=== PATIENT | female | born 1965 | race Two or more races ===

== ENCOUNTER 2018-08-11 10:07 | Inpatient (IN) | payer SELFPAY ==
[~2018-08-11] VITALS: Ht 154.9 cm; Wt 107.4 kg
[2018-08-11] MEDS ORDERED: SODIUM CHLORIDE 0.9% 1,000 ML IV ONE (10:15)
[2018-08-11] MEDS ORDERED: HEPARIN SODIUM (PORCINE) 5000 UNITS/ML 1ML VIAL ONE (10:26)
[2018-08-11] MEDS ORDERED: HEPARIN IN NS 1000U/500ML (2UNIT/ML) 500 ML BAG/KIT IV ONE (10:30)
[2018-08-11] MEDS ORDERED: ONDANSETRON HCL 4 MG/2 ML VIAL ONE (10:32)
[2018-08-11] MEDS ORDERED: MORPHINE SULFATE 4 MG/ML SYR/VIAL ONE (10:32)
[2018-08-11] MEDS ORDERED: IODIXANOL 320MG/ML 100ML BTL IV ONE (10:41)
[2018-08-11] MEDS ORDERED: LIDOCAINE 2%HCL (LOCAL ANESTH.) INJ 20ML MDV ONE (10:41)
[2018-08-11] MEDS ORDERED: MORPHINE SULFATE 4 MG/ML SYR/VIAL IV ONE (10:45)
[2018-08-11] MEDS ORDERED: ONDANSETRON HCL 4 MG/2 ML VIAL IV ONE (10:45)
[2018-08-11] MEDS ORDERED: ANGIOMAX 250 MG VIAL IV ONE (10:50)
[2018-08-11] MEDS ORDERED: MIDAZOLAM HCL 1MG/1ML-2 ML VIAL ONE (10:50)
[2018-08-11] MEDS ORDERED: fentaNYL CITRATE 100 MCG/2 ML VL ONE (10:50)
[2018-08-11] MEDS ORDERED: ATROPINE SULFATE 1 MG/1 ML VIAL ONE (10:50)
[2018-08-11] MEDS ORDERED: VERAPAMIL 2.5MG/ML INJ 2ML VIAL IV ONE (10:51)
[2018-08-11] MEDS ORDERED: EPINEPHrine HCL 1 MG/10 ML SYRG ONE (10:51)
[2018-08-11] MEDS ORDERED: DOPamine 1600MCG/ML D5W 0 ML IV ONE (10:51)
[2018-08-11] MEDS ORDERED: SODIUM CHL 0.9% 50 ML ONE (10:51)
[2018-08-11] MEDS ORDERED: HEPARIN SODIUM (PORCINE) 5000 UNITS/ML 1ML VIAL IV ONE (11:00)
[2018-08-11 11:05] LABS: Basophils # (auto) 0.1 uL; Eosinophils # (auto) 0.3 uL; Hemoglobin 12.8 g/dL (12.2-16.2); Nucleated Red Blood Cells % 0.1 %
[2018-08-11 11:09] LABS: Basophils % (auto) 0.7 % (0.0-2.0); Eosinophils % (auto) 1.9 % (0.0-7.0); Hematocrit 40.4 % (36.0-46.0); Lymphocytes # (auto) 6.1 uL; Lymphocytes % (auto) 37.1 % (10.0-50.0); Mean Corpuscular Hemoglobin 26.5 pg (28.0-32.0); Mean Corpuscular Hgb Conc. 31.6 g/dL (32.0-36.0); Mean Corpuscular Volume 83.8 fL (80.0-100.0); Monocytes # (auto) 1.1 uL; Neutrophils # (auto) 8.7 uL; Neutrophils % (auto) 53.3 % (37.0-80.0); Platelet Count (auto) 373 10^3/uL (140-450); Red Blood Cells 4.82 10^6/uL (4.0-5.20); Red Cell Distribution Width 15.6 % (11.8-14.3); White Blood Cell 16.4 10^3/uL (4.4-10.8)
[2018-08-11 11:22] LABS: Potassium 4.1 mmol/L (3.5-5.1)
[2018-08-11] MEDS ORDERED: TICAGRELOR 90 MG TAB ONE (11:25)
[2018-08-11 11:28] LABS: Albumin 3.2 g/dL (3.4-5.0); BUN/Creatinine Ratio 15.1; Bilirubin, Total 0.2 mg/dL (0.2-1.0); Calcium 8.2 mg/dL (8.5-10.1); Magnesium 2.4 mg/dL (1.6-2.6); Total Protein 7.9 g/dL (6.4-8.2)
[2018-08-11] MEDS: SODIUM CHLORIDE 0.9% 1,000 ML IV SCH ×2 (12:00→22:00)
[2018-08-11] MEDS ORDERED: NITROGLYCERIN 0.4 MG SL TAB SL PRN ×2 (12:00→12:15)
[2018-08-11] MEDS ORDERED: MORPHINE SULF INJ 2 MG/ML SYRINGE 1ML IV PRN ×2 (12:00→12:15)
[2018-08-11] MEDS ORDERED: SODIUM CHLORIDE 0.9% 1,000 ML IV SCH (12:06)
[2018-08-11] MEDS ORDERED: ONDANSETRON HCL 4 MG/2 ML VIAL IV PRN (12:15)
[2018-08-11] MEDS ORDERED: HYDROcodone-ACET 5/325MG TAB PO PRN (15:00)
[2018-08-11] MEDS ORDERED: LORazepam 0.5 MG TAB PO PRN (15:00)
[2018-08-11] MEDS ORDERED: ACETAMINOPHEN 500 MG TAB PO PRN (15:00)
[2018-08-11] MEDS ORDERED: ZOLPIDEM TARTRATE 5 MG TAB PO PRN (15:00)
[2018-08-11 16:00] VITALS: BP 139/86
[2018-08-11] MEDS ORDERED: DEXTROSE (50%) 50ML SYRG IV PRN (16:00)
--- NOTE | 2018-08-11 16:00 | NUR ---
Admit to [facility] admitted to [facility] via gurney on tafe registrar, and portable 02 from cathead worker s/p STEMI. Patient transferred to bed, connected to unit monitoring, and weighed by bed scale. Patient oriented to Livier Johnson, primary RN, unit, room, bed, and unit policies regarding patient care and visiting hours. All questions and concerns addressed, patient verbalized understanding.
[2018-08-11 16:58] LABS: INR 1.02 (0.9-1.15); Prothrombin Time 10.9 sec (9.27-12.13)
[2018-08-11] MEDS: InsuLIN REG 1unit/0.01ml Soln (100units/ml) SC SCH ×2 (17:00→21:56)
[2018-08-11] MEDS: ACCU-CHEK COMFORT CURVE STRIP VI SCH ×2 (17:00→21:55)
[2018-08-11 20:00] VITALS: BP 158/76
--- NOTE | 2018-08-11 20:35 | NUR ---
Telemetry transfer from [facility] transferred to Telemetry unit with all belongings after SBAR received from Lisa KAUR. Patient oriented to TOMAS LINCOLN RN primary RN, unit, room, bed, and unit policies regarding patient care and visiting hours. Patient now on continuous telemetry monitoring, tele box # 2 and telemetry reading on arrival to unit is sinus tachycardia at 101 beats per minute. Patient weighed by bedscale and encouraged to call if they need something. All questions and concerns addressed, patient verbalized understanding. Bed in lowest locked position, side rails up x2, call light within reach.
--- NOTE | 2018-08-11 20:37 | NUR ---
PATIENT IN STABLE CONDITION,NO SIGNIFICANT DISCOMFORT, RSR, BP STABLE, SATS 100% ON RA. STATUS CHANGED TO TELEMETRY. BED NOW AVAILABLE IN RM 250B. PT INFORMED OF TRANSFER, REPORT ON PT'S CONDITION GIVEN TO VINCENT MARIN.
[2018-08-11 20:45] VITALS: BP 151/62
[2018-08-11] MEDS: ATORVASTATIN 20 MG TAB PO SCH (21:15)
[2018-08-11] MEDS: CARVEDILOL 3.125 MG TAB PO SCH (21:16)
[2018-08-11] MEDS ORDERED: CLOPIDOGREL 300 MG TAB PO ONE (22:00)
[2018-08-12 05:00] VITALS: BP 98/49
[2018-08-12] MEDS: InsuLIN REG 1unit/0.01ml Soln (100units/ml) SC SCH ×4 (07:00→22:26)
[2018-08-12] MEDS: ACCU-CHEK COMFORT CURVE STRIP VI SCH ×4 (07:00→22:26)
[2018-08-12 07:37] VITALS: BP 121/67
[2018-08-12] MEDS: SODIUM CHLORIDE 0.9% 1,000 ML IV SCH ×2 (08:41→12:15)
[2018-08-12] MEDS: LOSARTAN POTASSIUM 25 MG TAB PO SCH (09:59)
[2018-08-12] MEDS: ASPirin 81 mg TAB PO SCH (09:59)
[2018-08-12] MEDS: CARVEDILOL 3.125 MG TAB PO SCH ×2 (10:00→22:26)
[2018-08-12] MEDS: CLOPIDOGREL BISULFATE 75 MG TAB PO SCH (10:00)
--- NOTE | 2018-08-12 10:57 | NUR ---
GAVE PATIENT DIABETIC INFORMATION BEFORE DISCHARGE SO THAT IF PATIENT NEEDS TO ASK QUESTIONS, SHE CAN ASK ME.
[2018-08-12] MEDS ORDERED: glipiZIDE 5 MG TAB PO ONE (11:45)
[2018-08-12] MEDS ORDERED: traMADol HCL 50 MG TAB PO PRN (12:00)
[2018-08-12 12:06] VITALS: BP 125/65
[2018-08-12 16:40] VITALS: BP 106/46
--- NOTE | 2018-08-12 19:30 | NUR ---
open note assumed care of pt. pt awake and alert upon entering room. denies any pain. no distress noted. pt updated on plan of care and had no additional questions at this time. call light in reach, encouraged pt to call as needed. will round q1hr and prn.
[2018-08-12 22:00] VITALS: BP 131/75
[2018-08-12] MEDS: ATORVASTATIN 20 MG TAB PO SCH (22:25)
[2018-08-13] MEDS: SODIUM CHLORIDE 0.9% 1,000 ML IV SCH (01:34)
[2018-08-13 05:00] VITALS: BP 93/42
[2018-08-13] MEDS: ACCU-CHEK COMFORT CURVE STRIP VI SCH ×2 (06:52→11:53)
[2018-08-13] MEDS: InsuLIN REG 1unit/0.01ml Soln (100units/ml) SC SCH ×2 (06:53→11:53)
[2018-08-13] MEDS ORDERED: glipiZIDE 5 MG TAB PO SCH (07:00)
--- NOTE | 2018-08-13 07:00 | NUR ---
Opening Shift Note Assumed care of patient, awake and alert. No S/S of distress/SOB or pain. Instructed on POC and to call for assist PRN, will continue to monitor for changes Q1hr and PRN.
[2018-08-13 07:43] LABS: Basophils # (auto) 0.1 uL; Basophils % (auto) 0.5 % (0.0-2.0); Eosinophils # (auto) 0.3 uL; Eosinophils % (auto) 2.8 % (0.0-7.0); Hematocrit 35.9 % (36.0-46.0); Hemoglobin 11.7 g/dL (12.2-16.2); Lymphocytes # (auto) 3.4 uL; Mean Corpuscular Hemoglobin 27.3 pg (28.0-32.0); Mean Corpuscular Hgb Conc. 32.5 g/dL (32.0-36.0); Mean Corpuscular Volume 83.9 fL (80.0-100.0); Monocytes # (auto) 0.7 uL; Monocytes % (auto) 6.6 % (0.0-12.0); Neutrophils # (auto) 6.4 uL; Neutrophils % (auto) 59.1 % (37.0-80.0); Platelet Count (auto) 317 10^3/uL (140-450); Red Blood Cells 4.28 10^6/uL (4.0-5.20); Red Cell Distribution Width 15.4 % (11.8-14.3); White Blood Cell 10.9 10^3/uL (4.4-10.8)
[2018-08-13 07:51] LABS: BUN/Creatinine Ratio 12.2; Calcium 7.9 mg/dL (8.5-10.1)
[2018-08-13 09:20] VITALS: BP 127/78
[2018-08-13] MEDS: ASPirin 81 mg TAB PO SCH (10:37)
[2018-08-13] MEDS: CARVEDILOL 3.125 MG TAB PO SCH (10:38)
[2018-08-13] MEDS: LOSARTAN POTASSIUM 25 MG TAB PO SCH (10:39)
[2018-08-13] MEDS: CLOPIDOGREL BISULFATE 75 MG TAB PO SCH (10:39)
[2018-08-13 12:29] VITALS: BP 127/78
[2018-08-13 13:00] VITALS: BP 110/67
--- NOTE | 2018-08-13 13:48 | NUR ---
Discharge instructions given as ordered. Encourage to follow up with PMD as instructed. All questions and concerns addressed. Patient verbalized understanding. Medication reconciliation form completed and copy given to patient. . IV removed with catheter intact, pressure dressing applied. Telemetry unit returned to ICU. Patient taken to vehicle via wheelchair with all personal belongings, accompanied by staff and family member. No distress noted at time of departure.
== END 2018-08-13 13:48 | disposition home or self-care (01) | DRG 247 ==
LOC: ER 10:16 → CATH 10:49 → ICU CENTRL 16:19 → DOU IN ICU 16:28 → TELE-EAST 20:30
PROVIDERS: ADMIT Internal Medicine; ATTEND Internal Medicine
PROC: 027035Z Dilation of Coronary Artery, One Artery with Two Drug-eluting Intraluminal Devices, Percutaneous Approach (ICD-10-PCS; principal; 2018-08-11)
PROC: 4A023N7 Measurement of Cardiac Sampling and Pressure, Left Heart, Percutaneous Approach (ICD-10-PCS; 2018-08-11)
PROC: B2111ZZ Fluoroscopy of Multiple Coronary Arteries using Low Osmolar Contrast (ICD-10-PCS; 2018-08-11)
DX: I21.3 ST elevation (STEMI) myocardial infarction of unspecified site (principal); Z68.41 Body mass index [BMI] 40.0-44.9, adult; I10 Essential (primary) hypertension; E78.5 Hyperlipidemia, unspecified; E66.01 Morbid (severe) obesity due to excess calories; I25.10 Atherosclerotic heart disease of native coronary artery without angina pectoris; E11.9 Type 2 diabetes mellitus without complications; I25.2 Old myocardial infarction; Z79.02 Long term (current) use of antithrombotics/antiplatelets; Z79.82 Long term (current) use of aspirin; Z79.84 Long term (current) use of oral hypoglycemic drugs; Z79.899 Other long term (current) drug therapy; Z91.14 Patient's other noncompliance with medication regimen
CPT/HCPCS: 36415; 71045; 80048; 80053; 82962; 83036; 83735; 83880; 84443; 84484; 85025; 85610; 87081; 93005; 93306; 94761; 96374; 96375; A6257; G0378; J0461; J1815; J2250; J2405; Q9967

== ENCOUNTER → 2019-01-03 | Outpatient (CLI) | payer MEDICAID | END | disposition home or self-care (01) | LOC: XYW 07:32 | PROVIDERS: ATTEND Internal Medicine | DX: I25.10 Atherosclerotic heart disease of native coronary artery without angina pectoris (principal); E11.9 Type 2 diabetes mellitus without complications | CPT/HCPCS: 93306 ==

== ENCOUNTER → 2019-03-26 | Outpatient (CLI) | payer MEDICAID ==
[~2019-03-26] VITALS: Ht 154.9 cm; Wt 90.7 kg
[~2019-03-26] MED LIST: ADENOSINE 76 MG in GIVE UN-DILUTED 0 ML IV STA
== END | disposition home or self-care (01) ==
LOC: XY 07:47
PROVIDERS: ATTEND Internal Medicine
DX: R07.9 Chest pain, unspecified (principal)
CPT/HCPCS: 78452; 93017; A9500; J0153

== ENCOUNTER 2020-02-04 10:06 | Day surgery (SDC) | payer MEDICAID ==
[~2020-02-04] VITALS: Ht 154.9 cm; Wt 90.7 kg
[~2020-02-04 10:06] MED LIST changes: -ADENOSINE 76 MG in GIVE UN-DILUTED 0 ML IV STA; +ASPI-543 PO; +ATOR40TA52 PO; +CARV12.544 PO; +CLOP75TA28 PO; +EMPA1TAB PO; +GABA100C9 PO; +LOSA-69 PO; +METF-370 PO; +PANT40TA2 PO
[2020-02-04] MEDS ORDERED: ANGIOMAX 250 MG VIAL IV ONE (10:38)
[2020-02-04] MEDS ORDERED: MIDAZOLAM HCL 1MG/1ML-2 ML VIAL ONE (10:39)
[2020-02-04] MEDS ORDERED: IOHEXOL 350 MG/ML 100ML IJ ONE (10:39)
[2020-02-04] MEDS ORDERED: HEPARIN SODIUM (PORCINE) 5000 UNITS/ML 1ML VIAL ONE (10:39)
[2020-02-04] MEDS ORDERED: LIDOCAINE 2%HCL (LOCAL ANESTH.) INJ 20ML MDV ONE (10:39)
[2020-02-04] MEDS ORDERED: fentaNYL CITRATE 100 MCG/2 ML VL ONE (10:39)
[2020-02-04] MEDS ORDERED: VERAPAMIL 2.5MG/ML INJ 2ML VIAL IV ONE (10:39)
[2020-02-04] MEDS ORDERED: SODIUM CHL 0.9% 50 ML ONE (10:39)
[2020-02-04] MEDS ORDERED: HYDROcodone-ACET 5/325MG TAB PO PRN (11:45)
[2020-02-04] MEDS ORDERED: ACETAMINOPHEN 500 MG TAB PO PRN (11:45)
[2020-02-04] MEDS ORDERED: ONDANSETRON HCL 4 MG/2 ML VIAL IV PRN (11:45)
== END 2020-02-04 15:53 | disposition home or self-care (01) ==
LOC: CATH 10:06
PROVIDERS: ATTEND Internal Medicine
DX: I25.10 Atherosclerotic heart disease of native coronary artery without angina pectoris (principal); I10 Essential (primary) hypertension; E78.5 Hyperlipidemia, unspecified; I25.2 Old myocardial infarction; E11.9 Type 2 diabetes mellitus without complications; F41.9 Anxiety disorder, unspecified; F32.9 Major depressive disorder, single episode, unspecified; Z79.84 Long term (current) use of oral hypoglycemic drugs; Z79.82 Long term (current) use of aspirin; Z79.899 Other long term (current) drug therapy; Z98.890 Other specified postprocedural states; Z20.828 Contact with and (suspected) exposure to other viral communicable diseases
CPT/HCPCS: 93458; 93571; C1725; C1769; C1874; C1887; C1894; C9600; J0583; J1644; J2250; J3010; J7030; Q9967; U0003; 99152; 99153

== ENCOUNTER → 2021-03-07 | Outpatient (CLI) | payer MEDICAID ==
[2021-03-07 08:54] LABS: Urine Bacteria NONE SEEN /hpf (None Seen); Urine Blood Negative /uL (Negative); Urine Mucus FEW (None Seen); Urine Specific Gravity 1.038 (1.001-1.035); Urine WBC 16 /hpf (0 - 5)
[2021-03-07 08:55] LABS: Basophils # (auto) 0 10 ^3/uL (0-0.2); Eosinophils # (auto) 0.3 10 ^3/uL (0-0.8)
[2021-03-07 08:57] LABS: Basophils % (auto) 0.3 % (0.0-2.0); Eosinophils % (auto) 3.4 % (0.0-7.0); Hematocrit 41.2 % (36.0-46.0); Lymphocytes # (auto) 3.3 10 ^3/uL (0.4-5.4); Lymphocytes % (auto) 36.4 % (10.0-50.0); Mean Corpuscular Hemoglobin 24.3 pg (28.0-32.0); Mean Corpuscular Hgb Conc. 31.4 g/dL (32.0-36.0); Mean Corpuscular Volume 77.4 fL (80.0-100.0); Monocytes # (auto) 0.6 10 ^3/uL (0-1.3); Monocytes % (auto) 6.3 % (0.0-12.0); Neutrophils # (auto) 4.9 10 ^3/uL (1.6-8.6); Neutrophils % (auto) 53.6 % (37.0-80.0); Red Blood Cells 5.33 10^6/uL (4.0-5.20); Red Cell Distribution Width 17.4 % (11.8-14.3); White Blood Cell 9.2 10^3/uL (4.4-10.8)
[2021-03-07 09:15] LABS: Albumin 3.4 g/dL (3.4-5.0); Calcium 8.7 mg/dL (8.5-10.1); Potassium 4.3 mmol/L (3.5-5.1)
[2021-03-07 09:20] LABS: BUN/Creatinine Ratio 18.9; Bilirubin, Total 0.3 mg/dL (0.2-1.0)
== END | disposition home or self-care (01) ==
LOC: LAB 08:07
PROVIDERS: ATTEND Internal Medicine
DX: E55.9 Vitamin D deficiency, unspecified (principal); E11.9 Type 2 diabetes mellitus without complications
CPT/HCPCS: 36415; 80053; 80061; 81001; 82043; 82306; 82607; 83036; 84443; 85025

== ENCOUNTER → 2021-10-10 | Outpatient (CLI) | payer MEDICAID ==
[2021-10-10 07:35] LABS: Basophils # (auto) 0 10 ^3/uL (0-0.2); Basophils % (auto) 0.4 % (0.0-2.0); Eosinophils # (auto) 0.2 10 ^3/uL (0-0.8); Eosinophils % (auto) 1.9 % (0.0-7.0); Hematocrit 41.8 % (36.0-46.0); Hemoglobin 13.8 g/dL (12.2-16.2); Lymphocytes % (auto) 35.2 % (10.0-50.0); Mean Corpuscular Hemoglobin 27.3 pg (28.0-32.0); Mean Corpuscular Volume 82.7 fL (80.0-100.0); Monocytes # (auto) 0.7 10 ^3/uL (0-1.3); Monocytes % (auto) 8.2 % (0.0-12.0); Neutrophils # (auto) 4.6 10 ^3/uL (1.6-8.6); Neutrophils % (auto) 54.3 % (37.0-80.0); Nucleated Red Blood Cells % 0.1 %; Red Blood Cells 5.06 10^6/uL (4.0-5.20); Red Cell Distribution Width 17.2 % (11.8-14.3); White Blood Cell 8.5 10^3/uL (4.4-10.8)
[2021-10-10 08:10] LABS: Potassium 4.3 mmol/L (3.5-5.1)
[2021-10-10 08:21] LABS: Albumin 3.5 g/dL (3.4-5.0); Bilirubin, Total 0.3 mg/dL (0.2-1.0); Calcium 8.8 mg/dL (8.5-10.1); Total Protein 7.6 g/dL (6.4-8.2)
== END | disposition home or self-care (01) ==
LOC: LAB 07:18
PROVIDERS: ATTEND Internal Medicine
DX: E11.9 Type 2 diabetes mellitus without complications (principal)
CPT/HCPCS: 36415; 80053; 80061; 82306; 83036; 85025

== ENCOUNTER 2023-03-26 10:00 | Outpatient (CLI) | payer MEDICAID ==
[~2023-03-26 10:00] MED LIST changes: +GABA-1308 PO; -GABA100C9 PO; -LOSA-69 PO; +LOSA50TA46 PO
== END 2023-03-26 10:59 | disposition home or self-care (01) ==
LOC: XYW 10:00
PROVIDERS: ATTEND Internal Medicine
DX: I25.10 Atherosclerotic heart disease of native coronary artery without angina pectoris (principal)
CPT/HCPCS: 93306

== ENCOUNTER → 2023-11-30 | Outpatient (CLI) | payer MEDICAID ==
[~2023-11-30] MED LIST changes: +LOSA-534 PO; -LOSA50TA46 PO
== END | disposition home or self-care (01) ==
LOC: XYW 09:11
PROVIDERS: ATTEND Internal Medicine
DX: I51.89 Other ill-defined heart diseases (principal); I25.10 Atherosclerotic heart disease of native coronary artery without angina pectoris
CPT/HCPCS: 93306

== ENCOUNTER → 2023-12-27 | Outpatient (CLI) | payer MEDICAID ==
[~2023-12-27] VITALS: Ht 154.9 cm; Wt 93.0 kg
[2023-12-27] MEDS: ADENOSINE 78 MG in GIVE UN-DILUTED 0 ML IV ONE (10:47)
== END | disposition home or self-care (01) ==
LOC: XYW 08:41
PROVIDERS: ATTEND Internal Medicine
DX: I25.10 Atherosclerotic heart disease of native coronary artery without angina pectoris (principal)
CPT/HCPCS: 78452; 93017; A9500; J0153

== ENCOUNTER → 2024-07-25 | Outpatient (CLI) | payer MEDICAID | END | disposition home or self-care (01) | LOC: LAB 15:19 | PROVIDERS: ATTEND Internal Medicine | DX: E11.22 Type 2 diabetes mellitus with diabetic chronic kidney disease (principal); N18.9 Chronic kidney disease, unspecified | CPT/HCPCS: 82274 ==

== ENCOUNTER → 2024-07-25 | Outpatient (CLI) | payer MEDICAID ==
[2024-07-25 11:02] LABS: Urine Bacteria None Seen /hpf (None Seen)
[2024-07-25 11:22] LABS: Urine Blood Negative /uL (Negative); Urine Clarity Clear (Clear); Urine Color Yellow (Yellow); Urine Mucus FEW (None Seen); Urine Protein, UAD TRACE (Negative); Urine Specific Gravity 1.027 (1.001-1.035); Urine Squamous Epithelial Cell FEW /hpf (<5); Urine Urobilinogen Normal (Negative); Urine WBC 1 /HPF (0-5); Urine pH 5.5 (5.0-9.0)
== END | disposition home or self-care (01) ==
LOC: LAB 11:00
PROVIDERS: ATTEND Internal Medicine
DX: Z12.11 Encounter for screening for malignant neoplasm of colon (principal); E11.22 Type 2 diabetes mellitus with diabetic chronic kidney disease; N18.9 Chronic kidney disease, unspecified
CPT/HCPCS: 81001; 82043

== ENCOUNTER → 2024-08-25 | Outpatient (CLI) | payer MEDICAID ==
[2024-08-25 08:01] LABS: Basophils # (auto) 0 10 ^3/uL (0-0.2); Basophils % (auto) 0.5 % (0.0-2.0); Eosinophils # (auto) 0.2 10 ^3/uL (0-0.8); Eosinophils % (auto) 2.5 % (0.0-7.0); Hematocrit 46.1 % (36.0-46.0); Hemoglobin 15.6 g/dL (12.2-16.2); Lymphocytes # (auto) 3.8 10 ^3/uL (0.4-5.4); Lymphocytes % (auto) 45.5 % (10.0-50.0); Mean Corpuscular Hgb Conc. 33.8 g/dL (32.0-36.0); Monocytes # (auto) 0.5 10 ^3/uL (0-1.3); Monocytes % (auto) 6.1 % (0.0-12.0); Neutrophils # (auto) 3.8 10 ^3/uL (1.6-8.6); Neutrophils % (auto) 45.4 % (37.0-80.0); Platelet Count (auto) 230 10^3/uL (140-450); Red Blood Cells 5.18 10^6/uL (4.0-5.20); Red Cell Distribution Width 13.9 % (11.8-14.3); White Blood Cell 8.4 10^3/uL (4.4-10.8)
[2024-08-25 08:34] LABS: Albumin 4.7 g/dL (3.2-4.8); Anion Gap 10 (5-15); Aspartate Aminotransferase 29 U/L (13-40); BUN/Creatinine Ratio 15.2 (10.0-20.0); Bilirubin, Total 0.4 mg/dL (0.2-1.0); Blood Urea Nitrogen 14 mg/dL (9-23); Calcium 9.8 mg/dL (8.7-10.4); Carbon Dioxide 24 mmol/L (20-31); Chloride 102 mmol/L (98-107); Potassium 4.4 mmol/L (3.5-5.1); Total Protein 7.9 g/dL (5.7-8.2)
[2024-08-25 08:36] LABS: Alanine Aminotransferase 45 U/L (7-40); Alkaline Phosphatase 138 U/L (46-116); Cholesterol 260 mg/dL (< 200); Glucose 271 mg/dL (74-106); HDL Cholesterol 37 mg/dL (40-59); LDL Cholesterol 196 mg/dL (< 100); Sodium 136 mmol/L (136-145); Triglycerides 319 mg/dL (< 150)
== END | disposition home or self-care (01) ==
LOC: LAB 07:32
PROVIDERS: ATTEND Internal Medicine
DX: E11.22 Type 2 diabetes mellitus with diabetic chronic kidney disease (principal); N18.9 Chronic kidney disease, unspecified
CPT/HCPCS: 36415; 80053; 80061; 82306; 83036; 84443; 85025

== ENCOUNTER 2024-12-10 06:55 | Outpatient (CLI) | payer MEDICAID ==
[2024-12-10 07:47] LABS: Hematocrit 50.0 % (36.0-46.0); Hemoglobin 17.3 g/dL (12.2-16.2); Mean Corpuscular Hemoglobin 30.2 pg (28.0-32.0); Mean Corpuscular Volume 87.2 fL (80.0-100.0); Nucleated Red Blood Cells % 0.0 %
[2024-12-10 07:59] LABS: Anion Gap 13 (5-15); BUN/Creatinine Ratio 13.6 (10.0-20.0); Bilirubin, Total 0.3 mg/dL (0.2-1.0); Blood Urea Nitrogen 14 mg/dL (9-23); Carbon Dioxide 24 mmol/L (20-31); Chloride 99 mmol/L (98-107); HDL Cholesterol 43 mg/dL (40-59); Potassium 4.4 mmol/L (3.5-5.1); Total Protein 8.2 g/dL (5.7-8.2)
[2024-12-10 08:07] LABS: Alanine Aminotransferase 43 U/L (7-40); Albumin 5.0 g/dL (3.2-4.8); Alkaline Phosphatase 194 U/L (46-116); Calcium 10.5 mg/dL (8.7-10.4); Cholesterol 274 mg/dL (< 200); Glucose 367 mg/dL (74-106); Sodium 136 mmol/L (136-145); Triglycerides 265 mg/dL (< 150)
[2024-12-10 08:48] LABS: Free T4 (Free Thyroxine) 1.06 ng/dL (0.89-1.76)
== END 2024-12-10 17:00 | disposition home or self-care (01) ==
LOC: LAB 06:55
PROVIDERS: ATTEND Internal Medicine
DX: E11.22 Type 2 diabetes mellitus with diabetic chronic kidney disease (principal); I12.9 Hypertensive chronic kidney disease with stage 1 through stage 4 chronic kidney disease, or unspecified chronic kidney disease; N18.9 Chronic kidney disease, unspecified; E78.5 Hyperlipidemia, unspecified; E55.9 Vitamin D deficiency, unspecified
CPT/HCPCS: 36415; 80053; 80061; 82306; 83036; 84439; 84443; 84480; 85025

== ENCOUNTER 2025-01-30 06:52 | Outpatient (CLI) | payer MEDICAID ==
[2025-01-30 07:45] LABS: Alanine Aminotransferase 38 U/L (7-40); Anion Gap 12 (5-15); BUN/Creatinine Ratio 11.9 (10.0-20.0); Blood Urea Nitrogen 12 mg/dL (9-23); Calcium 9.8 mg/dL (8.7-10.4); Carbon Dioxide 24 mmol/L (20-31); Chloride 99 mmol/L (98-107); Potassium 4.6 mmol/L (3.5-5.1)
[2025-01-30 07:46] LABS: Bilirubin, Total 0.4 mg/dL (0.2-1.0)
[2025-01-30 07:52] LABS: Albumin 4.9 g/dL (3.2-4.8); Alkaline Phosphatase 143 U/L (46-116); Glucose 274 mg/dL (74-106); Sodium 135 mmol/L (136-145); Total Protein 8.4 g/dL (5.7-8.2)
[2025-01-30 08:16] LABS: Microalb/Creat Ratio, Urine 8.00
== END 2025-01-30 17:00 | disposition home or self-care (01) ==
LOC: LAB 06:52
PROVIDERS: ATTEND Internal Medicine Endocrinology, Diabetes & Metabolism
DX: E11.65 Type 2 diabetes mellitus with hyperglycemia (principal)
CPT/HCPCS: 36415; 80053; 82043; 82570; 83036

== ENCOUNTER 2025-02-27 09:40 | Inpatient (IN) | payer MEDICAID ==
[~2025-02-27] VITALS: Ht 154.9 cm; Wt 89.2 kg
--- NOTE | 2025-02-27 10:08 | ED.PDOC ---
Chief Complaint: Chest Pain Time Seen by MD: 09:57 Primary Care Provider: none Allergies: Coded Allergies: NO KNOWN ALLERGIES (Unverified , 12/27/23) Home Meds Reported Medications Gabapentin (Gabapentin) 100 Mg Cap, 100 MG PO DAILY 02/02/20 Carvedilol (Carvedilol) 12.5 Mg Tab, 12.5 MG PO Q12HR 02/02/20 Empagliflozin (Jardiance) 10 Mg Tab, 10 MG PO QAM 02/02/20 Losartan Potassium (Losartan Potassium) 50 Mg Tab, 50 MG PO DAILY 02/02/20 Metformin Hydrochloride (Metformin Hcl) 500 Mg Tab, 500 MG PO BIDWM 02/02/20 Clopidogrel Bisulfate (Plavix) 75 Mg Tab, 75 MG PO DAILY 02/02/20 Atorvastatin Calcium (ATORVASTATIN CALCIUM) 40 Mg Tab, 40 MG PO DAILY 02/02/20 Pantoprazole Sodium Sesquihydr (Protonix) 40 Mg Tab, 40 MG PO DAILY 02/02/20 Aspirin (Aspir-Low) 81 Mg Tab, 81 MG PO DAILY 02/02/20 Mode of Arrival: Ambulatory Past Medical History PAST MEDICAL HISTORY: HTN Surgical History: Denies all surgeries AGATE SETTER History: No Pertinent AGATE SETTER History Family History Family History: Unknown Social History Smoker: Non-Smoker Alcohol: Denies ETOH Use Drugs: Denies Drug Use Lives In: Home EKG EKG : Comments Rate of 83 sinus rhythm no significant ST changes QTC of 429 X-Ray, Labs, Meds, VS Vital Signs Date Time Temp Pulse Resp B/P (MAP) Pulse Ox O2 Delivery O2 Flow Rate FiO2 02/27/25 10:12 83 02/27/25 09:44 98.1 86 18 155/92 98 98.1 Lab Test 02/27/25 10:00 Range/Units Troponin I High Sensitivity Pending SEPSIS Sepsis Screen Date sepsis recognized/suspect: Feb 27, 2025 Time Sepsis recognized/suspect: 945 Recent Procedure: No On Antibiotic Therapy: No Respiratory Rate >20: No Heart Rate >90: No Temp<36 C (96.8 F) or >38.3 C: No SBP <90 or MAP <65 mmHG: No New Acute Mental Status Change: No Is the patient on CPAP, BIPAP,: No Physician Orders Electrocardigram (02/27/25 09:41) Troponin-I Hs (02/27/25 09:41) Electrocardigram (02/27/25 10:41) Electrocardigram (02/27/25 12:41) Troponin-I Hs (02/27/25 10:41) Troponin-I Hs (02/27/25 12:41) Vital Signs Date Time Temp Pulse Resp B/P (MAP) Pulse Ox O2 Delivery O2 Flow Rate FiO2 02/27/25 10:12 83 02/27/25 09:44 98.1 86 18 155/92 98 98.1 I personally scribed for ERICK TERRY MD ([email or web address]) on 02/27/25 at 10:17. Electronically submitted by Suresh Verdin ([email or web address]). ERICK TERRY MD Feb 27, 2025 10:08
--- NOTE | 2025-02-27 10:12 | ED.PDOC ---
HPI Comments Year old female with a known history of diabetes previous DC and cardiac stents presents here with chest discomfort that she states is to her left side and reports it is sharp. She states she can be doing anything when this pain occurs. She begins to have cold sweats, vomiting nausea and numbness to her left arm when this occurs. Pain goes away by itself. She does not take anything for. Begins to subside. She does have a history of cardiac stents x3. Currently on Plavix. Patient is generally compliant on both medications. The patient denies any recent illness no cough cold runny nose fever or chills. Currently reports chest discomfort 5/6 out of 10 and now. Chief Complaint: Chest Pain Time Seen by MD: 10:05 Primary Care Provider: none Reviewed Notes: Nurses Notes, Medications, Allergies Allergies: Coded Allergies: NO KNOWN ALLERGIES (Unverified , 12/27/23) Home Meds Reported Medications Gabapentin (Gabapentin) 100 Mg Cap, 100 MG PO DAILY 02/02/20 Carvedilol (Carvedilol) 12.5 Mg Tab, 12.5 MG PO Q12HR 02/02/20 Empagliflozin (Jardiance) 10 Mg Tab, 10 MG PO QAM 02/02/20 Losartan Potassium (Losartan Potassium) 50 Mg Tab, 50 MG PO DAILY 02/02/20 Metformin Hydrochloride (Metformin Hcl) 500 Mg Tab, 500 MG PO BIDWM 02/02/20 Clopidogrel Bisulfate (Plavix) 75 Mg Tab, 75 MG PO DAILY 02/02/20 Atorvastatin Calcium (ATORVASTATIN CALCIUM) 40 Mg Tab, 40 MG PO DAILY 02/02/20 Pantoprazole Sodium Sesquihydr (Protonix) 40 Mg Tab, 40 MG PO DAILY 02/02/20 Aspirin (Aspir-Low) 81 Mg Tab, 81 MG PO DAILY 02/02/20 Information Source: Patient Mode of Arrival: Ambulatory Severity: Moderate Timing: Days Duration: Since onset, Days Prehospital treatment: None Location: Substernal Radiation: No Radiation Quality: Sharp Onset: At Rest Cardiac Risk Factors: HTN PE Risk Factors: None History of: None Associated Signs and Symptoms: None Past Medical History PAST MEDICAL HISTORY: CAD, DM, HTN Past Medical History (Other): stent x3 Surgical History: Denies all surgeries OTHER SALES SUPPORT WORKER History: No Pertinent OTHER SALES SUPPORT WORKER History Family History Family History: Reviewed,noncontributory to illness, Unknown Social History Smoker: Non-Smoker Alcohol: Denies ETOH Use Drugs: Denies Drug Use Lives In: Home Constitutional: denies: chills, diaphoresis, fatigue, fever, malaise, sweats, weakness, others EENTM: denies: blurred vision, double vision, ear bleeding, ear discharge, ear drainage, ear pain, ear ringing, eye pain, eye redness, hearing loss, mouth pain, mouth swelling, nasal discharge, nose bleeding, nose congestion, nose pain, photophobia, tearing, throat pain, throat swelling, voice changes, others Respiratory: denies: cough, hemoptysis, orthopnea, SOB at rest, shortness of breath, SOB with excertion, stridor, wheezing, others Cardiovascular: reports: chest pain; denies: dizzy spells, diaphoresis, Dyspnea on exertion, edema, irregular heart beat, left arm pain, lightheadedness, palpitations, PND, syncope, others Gastrointestinal: denies: abdomen distended, abdominal pain, blood streaked bowels, constipated, diarrhea, dysphagia, difficulty swallowing, hematemesis, melena, nausea, poor appetite, poor fluid intake, rectal bleeding, rectal pain, vomiting, others Genitourinary: denies: abnormal vagina bleeding, burning, dyspareunia, dysuria, flank pain, frequency, hematuria, incontinence, pain, , vagina d ischarge, urgency, others Neurological: denies: dizziness, fainting, headache, left sided numbness, left sided weakness, numbness, paresthesia, pre-existing deficit, right sided numbness, right sided weakness, seizure, speech problems, tingling, tremors, weakness, others Musculoskeletal: denies: back pain, gout, joint pain, joint swelling, muscle pain, muscle stiffness, neck pain, others Integumetry: denies: bruises, change in color, change in hair/nails, dryness, laceration, lesions, lumps, rash, wounds, others Allergic/Immunocompromised: denies: Difficulty Healing, Frequent Infections, Hives, Itching, others Hematologic/Lymphatic: denies: anemia, blood clots, easy bleeding, easy bruising, swollen glands, others Endocrine: denies: excessive hunger, excessive sweating, excessive thirst, excessive urination, flushing, intolerance to cold, intolerance to heat, unexplained weight gain, unexplained weight loss, others Psychiatric: denies: anxiety, bipolar disorder, depression, hopeless, panic disorder, schizophrenia, sleepless, suicidal, others All Other Systems: Reviewed and Negative Physical Exam General Appearance: Mild Distress, Normal HEENT: Normal ENT Inspection, Pharynx Normal, TMs Normal Neck: Full Range of Motion, Non-Tender, Normal, Normal Inspection Respiratory: Chest Non-Tender, Lungs Clear, No Accessory Muscle Use, No Respiratory Distress, Normal Breath Sounds Cardiovascular: No Edema, No JVD, No Murmur, No Gallop, Normal Peripheral Pulses, Regular Rate/Rhythm Breast Exam: Deferred Gastrointestinal: No Organomegaly, Non Tender, No Pulsatile Mass, Normal Bowel Sounds, Soft Genitalia: Deferred Pelvic: Deferred Rectal: Deferred Extremities: No calf tenderness, Normal capillary refill, Normal inspection, Normal range of motion, Non-tender, No pedal edema Musculoskeletal : Apperance: Normal Neurologic: Alert, drug and alcohol counselor II-XII nml as Tested, No Motor Deficits, Normal Affect, Normal Mood, No Sensory Deficits Cerebellar Function: Normal Reflexes: Normal Skin: Dry, Normal Color, Warm Lymphatic: No Adenopathy EKG EKG #1: Pulse Rate (adult): 83 [place]: Normal Cardiac Rhythm: NSR Block: None Hypertrophy: None ST: Normal Comments Rate of 83 sinus rhythm no significant ST changes QTC of 429 EKG #2: Comments EKG 2. 12:51 p.m.. Rate of 65 sinus rhythm no significant ST changes Was a procedure done? Was a procedure done?: No CP Differential Dx Differential Diagnosis: Angina, Pulmonary Embolus Differential Diagnosis: Angina, Chest Wall Pain, Cholelithiasis, Gastritis, Myocardial Infarction, Pneumonia, Pneumothorax, Pulmonary Embolus X-Ray, Labs, Meds, VS Vital Signs Date Time Temp Pulse Resp B/P (MAP) Pulse Ox O2 Delivery O2 Flow Rate FiO2 02/27/25 12:51 65 02/27/25 12:41 97.5 65 16 150/93 (112) 96 97.5 02/27/25 12:02 176/101 02/27/25 10:42 72 02/27/25 10:12 83 02/27/25 09:44 98.1 86 18 155/92 98 98.1 Lab Test 02/27/25 13:11 02/27/25 11:06 02/27/25 10:00 Range/Units Troponin I High Sensitivity Pending < 3 L < 3 L </=34 ng/L White Blood Count 9.4 4.4-10.8 10^3/uL Red Blood Count 5.63 H 4.0-5.20 10^6/uL Hemoglobin 16.4 H 12.2-16.2 g/dL Hematocrit 49.6 H 36.0-46.0 % Mean Corpuscular Volume 88.0 80.0-100.0 fL Mean Corpuscular Hemoglobin 29.2 28.0-32.0 pg Mean Corpuscular Hemoglobin Concent 33.2 32.0-36.0 g/dL Red Cell Distribution Width 14.0 11.8-14.3 % Platelet Count 272 140-450 10^3/uL Mean Platelet Volume 8.7 6.9-10.8 fL Neutrophils (%) (Auto) 55.0 37.0-80.0 % Lymphocytes (%) (Auto) 36.5 10.0-50.0 % Monocytes (%) (Auto) 6.0 0.0-12.0 % Eosinophils (%) (Auto) 2.1 0.0-7.0 % Basophils (%) (Auto) 0.4 0.0-2.0 % Neutrophils # (Auto) 5.2 1.6-8.6 10 ^3/uL Lymphocytes # (Auto) 3.4 0.4-5.4 10 ^3/uL Monocytes # (Auto) 0.6 0-1.3 10 ^3/uL Eosinophils # (Auto) 0.2 0-0.8 10 ^3/uL Basophils # (Auto) 0 0-0.2 10 ^3/uL Nucleated Red Blood Cells 0.1 % Sodium Level 135 L 136-145 mmol/L Potassium Level 4.0 3.5-5.1 mmol/L Chloride Level 98 98-107 mmol/L Carbon Dioxide Level 26 20-31 mmol/L Anion Gap 11 5-15 Blood Urea Nitrogen 13 9-23 mg/dL Creatinine 0.98 0.550-1.02 mg/dL Glomerular Filtration Rate Calc 67 >90 mL/min BUN/Creatinine Ratio 13.3 10.0-20.0 Serum Glucose 376 H 74-106 mg/dL Calcium Level 9.5 8.7-10.4 mg/dL Current Medications Medications (Trade) Dose Ordered Sig/Charlette Route Start Time Stop Time Status Last Admin Aspirin 162 mg ONCE ONCE PO 02/27/25 11:00 02/27/25 11:01 DC 02/27/25 12:11 Nitroglycerin (Ntrostat Sublingual) 0.4 mg ONCE ONCE SL 02/27/25 11:30 02/27/25 11:31 DC 02/27/25 12:02 Ondansetron HCl (Zofran) 4 mg ONCE ONCE IV 02/27/25 11:30 02/27/25 11:31 DC 02/27/25 12:58 [place] [id number] Ph: [phone] DIAGNOSTIC IMAGING Diagnostic Imaging Report : [id number] Signed PATIENT: JOSE JUAN JULESCCT: [id number] UNIT: [id number] : 1965 LOC: ER ROOM / BED: / AGE / SEX: 59 / F ADM STATUS: REG ER SERVICE 1052 ORDERING PHYSICIAN: ERICK TERRY MD PROCEDURE(s): CXR2 - CHEST TWO VIEWS ROUTINE REASON: Chest pain ORDER NUMBER(s): [id number], ACCESSION NUMBER(s): [id number] CHEST TWO VIEWS ROUTINE CLINICAL HISTORY: Chest pain COMPARISON: None TECHNIQUE: Frontal and lateral view of the chest was obtained FINDINGS: Lines and Tubes: None Lungs: No focal consolidation. Pleura: No effusion. No pneumothorax. Cardiomediastinal contours: Unremarkable Bones: No acute osseous abnormality. IMPRESSION: No acute cardiopulmonary disease. ATED BY: BANDAR KHAN MD DICTATED DATE/TIME: 02/27/25 1143 SIGNED BY: BANDAR KHAN MD SIGNED DATE/TIME: 02/27/25 1143 CC: 59-year-old female with a known history of diabetes previous myocardial infarction and stents x3 presents here with chest discomfort. Chest discomfort is not associated with any type of exertion however she states it is associated with diaphoresis, nausea vomiting and left arm numbness. At this time I am concerned about acute coronary syndrome. Given her history. I have given her aspirin in the ER. I have written for nitroglycerin p.o.. CBC BMP troponin EKG and chest x-ray has been ordered. CBC unremarkable. BMP with elevated blood sugar troponin x2 is negative. EKG with no significant ST changes. However patient's heart score is 4. At this time concerned about acute coronary syndrome. Patient states pain improved significantly with nitroglycerin. She did not get the morphine as she did not want to. Chest x-ray with no evidence of acute pathology. Time of 1ST Reevaluation: 10:35 Reevaluation 1ST: Unchanged Time of 2ND Reevaluation: 13:44 Reevaluation 2ND: Improved Patient Education/Counseling: Diagnosis, Treatment, Prognosis Family Education/Counseling: No Family Present SEPSIS Sepsis Screen Date sepsis recognized/suspect: Feb 27, 2025 Time Sepsis recognized/suspect: 945 Recent Procedure: No On Antibiotic Therapy: No Respiratory Rate >20: No Heart Rate >90: No Temp<36 C (96.8 F) or >38.3 C: No SBP <90 or MAP <65 mmHG: No New Acute Mental Status Change: No Is the patient on CPAP, BIPAP,: No Physician Orders Electrocardigram (02/27/25 12:41) Troponin-I Hs (02/27/25 12:41) Chest Two Views Routine (02/27/25 10:52) Vital Signs Date Time Temp Pulse Resp B/P (MAP) Pulse Ox O2 Delivery O2 Flow Rate FiO2 02/27/25 12:51 65 02/27/25 12:41 97.5 65 16 150/93 (112) 96 97.5 02/27/25 12:02 176/101 02/27/25 10:42 72 02/27/25 10:12 83 02/27/25 09:44 98.1 86 18 155/92 98 98.1 Laboratory Tests Test 02/27/25 10:00 White Blood Count 9.4 10^3/uL (4.4-10.8) Medications Medications Dose Ordered Sig/Charlette Route Start Time Stop Time Status Last Admin Dose Admin Aspirin 162 mg ONCE ONCE PO 02/27/25 11:00 02/27/25 11:01 DC 02/27/25 12:11 Nitroglycerin 0.4 mg ONCE ONCE SL 02/27/25 11:30 02/27/25 11:31 DC 02/27/25 12:02 Ondansetron HCl 4 mg ONCE ONCE IV 02/27/25 11:30 02/27/25 11:31 DC 02/27/25 12:58 Departure 1 Departure Time of Disposition: 13:44 Impression: Primary Impression: Chest pain Qualified Codes: R07.9 - Chest pain, unspecified Disposition: 09 ADMITTED INPATIENT Condition: Serious Critical Care Note Critical Care Time?: No Stability Stability form required: No Heart Score Heart Score: Heart Score Response (Comments) Value History Moderate Suspicious 1 EKG Normal 0 Age 45-64 1 Risk Factors >3 or Hx ASHD 2 Troponin Normal limit 0 Total 4 I personally scribed for ERICK TERRY MD ([email or web address]) on 02/27/25 at 10:12. Electronically submitted by Suresh Verdin (Sounder). I personally scribed for ERICK TERRY MD ([email or web address]) on 02/27/25 at 10:16. Electronically submitted by Suresh Verdin (Sounder). I personally scribed for ERICK TERRY MD ([email or web address]) on 02/27/25 at 12:19. Electronically submitted by Suresh Verdin (Sounder). ERICK TERRY MD Feb 27, 2025 10:12
[2025-02-27] MEDS: MORPHINE SULFATE 4 MG/ML SYR/VIAL IV ONE (11:30)
--- NOTE | 2025-02-27 11:45 | DVH ---
XY CHEST TWO VIEWS ROUTINE CLINICAL HISTORY: Chest pain COMPARISON: None TECHNIQUE: Frontal and lateral view of the chest was obtained FINDINGS: Lines and Tubes: None Lungs: No focal consolidation. Pleura: No effusion. No pneumothorax. Cardiomediastinal contours: Unremarkable Bones: No acute osseous abnormality. IMPRESSION: No acute cardiopulmonary disease.
[2025-02-27 11:52] LABS: Hematocrit 49.6 % (36.0-46.0); Hemoglobin 16.4 g/dL (12.2-16.2); Mean Corpuscular Hemoglobin 29.2 pg (28.0-32.0); Mean Corpuscular Volume 88.0 fL (80.0-100.0); Nucleated Red Blood Cells % 0.1 %
[2025-02-27] MEDS: NITROGLYCERIN 0.4 MG SL TAB SL ONE (12:02)
[2025-02-27 12:14] LABS: Potassium 4.0 mmol/L (3.5-5.1)
[2025-02-27 12:15] LABS: Anion Gap 11 (5-15); Carbon Dioxide 26 mmol/L (20-31)
[2025-02-27 12:16] LABS: Calcium 9.5 mg/dL (8.7-10.4)
[2025-02-27 12:17] LABS: Chloride 98 mmol/L (98-107); Sodium 135 mmol/L (136-145)
[2025-02-27 12:21] LABS: BUN/Creatinine Ratio 13.3 (10.0-20.0); Blood Urea Nitrogen 13 mg/dL (9-23); Glucose 376 mg/dL (74-106)
[2025-02-27] MEDS: ONDANSETRON HCL 4 MG/2 ML VIAL IV ONE (12:58)
--- NOTE | 2025-02-27 12:59 | ECG ---
[facility] Test Date: 2025-02-27 Test Time: 10:42:45 Pat Name: CHRIS WARD Department: ED Room: [address] [place] [address] Gender: F Pin Setter: dandre : 1965 Requested By: ERICK TERRY Order Number: [id number] Reading MD: Oscar Palencia Measurements Intervals [place] Rate: 72 P: 47 [place]: 139 QRS: 37 QRSD: 79 T: 48 QT: 376 QTc: 412 Interpretive Statements Sinus rhythm Low voltage, precordial leads Baseline wander in lead(s) II,V4 Electronically Signed On 02-28-2025 20:37:58 PDT by Oscar Palencia Please click the below link to view image of tracing.
--- NOTE | 2025-02-27 13:00 | ECG ---
[facility] Test Date: 2025-02-27 Test Time: 12:51:23 Pat Name: CHRIS WARD Department: ED Room: [address] [place] [address] Gender: F Physical Therapy Aid: dandre : 1965 Requested By: ERICK TERRY Order Number: [id number] Reading MD: Oscar Palencia Measurements Intervals [place] Rate: 65 P: 64 [place]: 147 QRS: 53 QRSD: 93 T: 55 QT: 409 QTc: 426 Interpretive Statements Sinus rhythm Low voltage, precordial leads Electronically Signed On 02-28-2025 20:38:07 PDT by Oscar Palencia Please click the below link to view image of tracing.
--- NOTE | 2025-02-27 14:16 | DVHHP2 ---
History of Present Illness Reason for Visit: Chest pain History of Present Illness Juanis Cordero is a 59-year-old female with past medical history of hypertension, CAD status post PTCA x3, diabetes, hyperlipidemia, obesity, and medical noncompliance who presents to the ED with chest pain radiating to left arm, nausea, and vomiting that started 1 week ago but became worse yesterday, reports the pain is 6/10 sharp and intermittent in nature. Patient also reports having cold sweats, nausea, vomiting, and numbness to her left arm. Patient reports that she is on Plavix but forgets to take it from time to time. Patient also reports of a rash underneath her left breast that started a couple of days ago was red and had pustules raised and bumpy but now has started to heal. She reports that she placed Aquaphor on it. She also reports that she has a history of chickenpox and shingles. Patient also reports that the 3 stents that she she had was placed here at [facility] 5 and 6 years ago. Patient denies any recent trauma or injury, recent sick contacts, recent travels, recent ingestion of spoiled food, shortness of breath, fever, chills, lightheadedness, weakness, dizziness, diarrhea, or urinary symptoms. Cardiovascular: CAD, HTN, hyperipidemia Endocrine: Diabetes Past Medical History Obesity Chickenpox Shingles Past Surgical History: Other (PTCA x3) Family History: Hyperlipidemia, Hypertension, Other (Mom with hypertension and hyperlipidemia who of a heart attack. Dad due to heart attack.) Smoke: No ALCOHOL: none Drugs: None Lives: with Family Domestic Violence: Neg Review of Systems Cardiovascular: Chest Pain Gastrointestinal: Nausea, Vomiting Musculoskeletal: arm pain Skin: Rash (Under left breast) Allergies: Coded Allergies: NO KNOWN ALLERGIES (Unverified , 12/27/23) Exam Vital Signs Vital Signs Date Time Temp Pulse Resp B/P (MAP) Pulse Ox O2 Delivery O2 Flow Rate FiO2 02/27/25 12:51 65 02/27/25 12:41 97.5 16 150/93 (112) 96 97.5 General Appearance: Alert, Oriented X3, Cooperative, No acute distress HEENT: Atraumatic, PERRLA, Mucous membr. moist/pink Respiratory: Clear to auscultation, Normal air movement Cardiovascular: Regular rate, Normal S1, Normal S2 Abdominal: Normal bowel sounds, Soft Extremities: Normal pulses Neuro: Normal gait, Normal speech, Strength at 5/5 X4 ext, Normal tone, Sensation intact Psych/Mental Status: Mental status NL, Mood NL Labs/Xrays Labs Test 02/27/25 13:11 02/27/25 10:00 Range/Units Troponin I High Sensitivity < 3 L </=34 ng/L White Blood Count 9.4 4.4-10.8 10^3/uL Red Blood Count 5.63 H 4.0-5.20 10^6/uL Hemoglobin 16.4 H 12.2-16.2 g/dL Hematocrit 49.6 H 36.0-46.0 % Mean Corpuscular Volume 88.0 80.0-100.0 fL Mean Corpuscular Hemoglobin 29.2 28.0-32.0 pg Mean Corpuscular Hemoglobin Concent 33.2 32.0-36.0 g/dL Red Cell Distribution Width 14.0 11.8-14.3 % Platelet Count 272 140-450 10^3/uL Mean Platelet Volume 8.7 6.9-10.8 fL Neutrophils (%) (Auto) 55.0 37.0-80.0 % Lymphocytes (%) (Auto) 36.5 10.0-50.0 % Monocytes (%) (Auto) 6.0 0.0-12.0 % Eosinophils (%) (Auto) 2.1 0.0-7.0 % Basophils (%) (Auto) 0.4 0.0-2.0 % Neutrophils # (Auto) 5.2 1.6-8.6 10 ^3/uL Lymphocytes # (Auto) 3.4 0.4-5.4 10 ^3/uL Monocytes # (Auto) 0.6 0-1.3 10 ^3/uL Eosinophils # (Auto) 0.2 0-0.8 10 ^3/uL Basophils # (Auto) 0 0-0.2 10 ^3/uL Nucleated Red Blood Cells 0.1 % Sodium Level 135 L 136-145 mmol/L Potassium Level 4.0 3.5-5.1 mmol/L Chloride Level 98 98-107 mmol/L Carbon Dioxide Level 26 20-31 mmol/L Anion Gap 11 5-15 Blood Urea Nitrogen 13 9-23 mg/dL Creatinine 0.98 0.550-1.02 mg/dL Glomerular Filtration Rate Calc 67 >90 mL/min BUN/Creatinine Ratio 13.3 10.0-20.0 Serum Glucose 376 H 74-106 mg/dL Calcium Level 9.5 8.7-10.4 mg/dL XY CHEST TWO VIEWS ROUTINE CLINICAL HISTORY: Chest pain COMPARISON: None TECHNIQUE: Frontal and lateral view of the chest was obtained FINDINGS: Lines and Tubes: None Lungs: No focal consolidation. Pleura: No effusion. No pneumothorax. Cardiomediastinal contours: Unremarkable Bones: No acute osseous abnormality. IMPRESSION: No acute cardiopulmonary disease. SEPSIS Sepsis Screen Date sepsis recognized/suspect: Feb 27, 2025 Time Sepsis recognized/suspect: 945 Recent Procedure: No On Antibiotic Therapy: No Respiratory Rate >20: No Heart Rate >90: No Temp<36 C (96.8 F) or >38.3 C: No SBP <90 or MAP <65 mmHG: No New Acute Mental Status Change: No Is the patient on CPAP, BIPAP,: No Physician Orders Electrocardigram (02/27/25 12:41) Chest Two Views Routine (02/27/25 10:52) Vital Signs Date Time Temp Pulse Resp B/P (MAP) Pulse Ox O2 Delivery O2 Flow Rate FiO2 02/27/25 12:51 65 02/27/25 12:41 97.5 65 16 150/93 (112) 96 97.5 02/27/25 12:02 176/101 02/27/25 10:42 72 02/27/25 10:12 83 02/27/25 09:44 98.1 86 18 155/92 98 98.1 Laboratory Tests Test 02/27/25 10:00 White Blood Count 9.4 10^3/uL (4.4-10.8) Medications Medications Dose Ordered Sig/Charlette Route Start Time Stop Time Status Last Admin Dose Admin Aspirin 162 mg ONCE ONCE PO 02/27/25 11:00 02/27/25 11:01 DC 02/27/25 12:11 162 MG Nitroglycerin 0.4 mg ONCE ONCE SL 02/27/25 11:30 02/27/25 11:31 DC 02/27/25 12:02 0.4 MG Ondansetron HCl 4 mg ONCE ONCE IV 02/27/25 11:30 02/27/25 11:31 DC 02/27/25 12:58 4 MG Assessment/Plan Assessment/Plan Assessment Chest pain rule out ACS Obesity Left breast rash likely shingles History of chickenpox History of shingles History of hypertension History of hyperlipidemia History of CAD status post PTCA x3 Medical noncompliance Plan Admit to tele Contact and airborne isolation Varicella zoster IgG Acyclovir IV Wound culture with Gram stain Aspirin + statin Antiemetics Pain management Antihypertensives Troponin noted negative x3 Chest x-ray EKG Hemoglobin A1c ISS and Accu-Cheks UA UDS ACS workup Echo ordered Last echo on 11/30/2023 EF 55% Diet Home medications reconciled DVT prophylaxis-SCDs PUD prophylaxis-PPIs Discussed plan of care with patient and nurse Cardiology consulted Consider ID consult Counseled patient on medication adherence Counseled patient on lifestyle modifications, diet, and exercise [id number] Preventive counseling healthy eating habits, physical activity, and regular checkups Plan discussed with: Patient Date of Service: Feb 27, 2025 Billing Provider: LEONARDA GOLD Common Visit Codes: [id number] INP/OBS CARE (HIGH) Secondary Visit Codes: [id number] COUNSELING IND LEONARDA GOLD Feb 27, 2025 14:16
[2025-02-27] MEDS ORDERED: METO25TA93 PO (14:21)
[2025-02-27] MEDS ORDERED: ONDANSETRON HCL 4 MG/2 ML VIAL IV PRN (14:30)
[2025-02-27] MEDS ORDERED: ACETAMINOPHEN 325 MG TAB PO PRN (14:30)
[2025-02-27] MEDS ORDERED: NITROGLYCERIN 0.4 MG SL TAB SL PRN ×2 (14:30)
[2025-02-27] MEDS ORDERED: DEXTROSE (50%) 50ML SYRG IV PRN (14:30)
[2025-02-27] MEDS ORDERED: MORPHINE SULFATE INJ 2 MG/ml SYRG IV PRN (14:30)
[2025-02-27] MEDS ORDERED: MORPHINE SULFATE 4 MG/ML SYR/VIAL IV PRN (14:30)
[2025-02-27] MEDS: InsuLIN REG 1unit/0.01ml Soln (100units/ml) SC SCH (17:44)
[2025-02-27] MEDS: ACCU-CHEK COMFORT CURVE STRIP VI SCH (17:45)
[2025-02-27] MEDS: ACYCLOVIR SOD 50MG/ML 800 MG in SODIUM CHL 0.9% 250 ML IV SCH (18:26)
[2025-02-27 20:54] VITALS: BP 122/80; PULSE 69; RESP 18; TEMP 98.3; O2SAT 98
[2025-02-27 21:52] LABS: Urine Protein, UAD Negative (Negative)
[2025-02-27] MEDS ORDERED: ATORVASTATIN 20 MG TAB PO SCH (22:00)
[2025-02-27 22:03] LABS: Opiate Scree,Urine Neg (NEGATIVE)
[2025-02-27 22:04] LABS: Amphetamine Screen, Urine Neg (NEGATIVE); Barbiturate Scree,Urine Neg (NEGATIVE); Benzodiazephine Screen, Urine Neg (NEGATIVE); Cannabinoid Screen, Urine Neg (NEGATIVE); Cocaine Screen, Urine Neg (NEGATIVE); Phencyclidine Screen, Urine Neg (NEGATIVE)
[2025-02-28] MEDS ORDERED: EMPAGLIFLOZIN 10 MG TAB PO SCH (07:00)
[2025-02-28] MEDS ORDERED: GABAPENTIN 100 MG CAP PO SCH (10:00)
[2025-02-28] MEDS ORDERED: PANTOPRAZOLE 40 MG TAB PO SCH (10:00)
[2025-02-28] MEDS ORDERED: METOPROLOL SUCCINATE XL 50 MG TAB PO SCH (10:00)
[2025-02-28] MEDS ORDERED: CLOPIDOGREL BISULFATE 75 MG TAB PO SCH (10:00)
[2025-02-28] MEDS ORDERED: LOSARTAN POTASSIUM 50 MG TAB PO SCH (10:00)
--- NOTE | 2025-03-05 07:57 | ECG ---
[facility] Test Date: 2025-02-27 Test Time: 09:53:56 Pat Name: CHRIS WARD Department: ED Room: [address] [place] [address] Gender: F Director Of Career Resources: rishi : 1965 Requested By: ERICK TERRY Order Number: [id number] Reading MD: Oscar Palencia Measurements Intervals [place] Rate: 83 P: 69 DE: 154 QRS: 18 QRSD: 81 T: 69 QT: 365 QTc: 429 Interpretive Statements Sinus rhythm Low voltage, precordial leads Baseline wander in lead(s) V4,V6 Electronically Signed On 03-07-2025 18:35:11 PDT by Oscar Palencia Please click the below link to view image of tracing.
== END 2025-02-27 22:06 | disposition left against medical advice (07) | DRG 198 ==
LOC: ER 09:40 → OVERFLOW 14:16
DX: I24.9 Acute ischemic heart disease, unspecified (principal); B02.9 Zoster without complications; E66.9 Obesity, unspecified; I25.10 Atherosclerotic heart disease of native coronary artery without angina pectoris; Z53.29 Procedure and treatment not carried out because of patient's decision for other reasons; I10 Essential (primary) hypertension; E11.9 Type 2 diabetes mellitus without complications; E78.5 Hyperlipidemia, unspecified; I25.2 Old myocardial infarction; Z79.84 Long term (current) use of oral hypoglycemic drugs; Z79.82 Long term (current) use of aspirin; Z95.5 Presence of coronary angioplasty implant and graft; Z91.199 Patient's noncompliance with other medical treatment and regimen due to unspecified reason; Z82.49 Family history of ischemic heart disease and other diseases of the circulatory system; Z86.19 Personal history of other infectious and parasitic diseases; Z79.02 Long term (current) use of antithrombotics/antiplatelets; Z68.37 Body mass index [BMI] 37.0-37.9, adult
CPT/HCPCS: 36415; 71046; 80048; 80307; 81001; 82962; 84439; 84443; 84484; 85025; 86787; 93005; G0378; J2405